=== PATIENT | male | born 1980 | race Caucasian/White ===

== ENCOUNTER → 2017-04-06 | Emergency (ER) | payer BC ==
[~2017-04-06] VITALS: Ht 177.8 cm; Wt 115.5 kg
[~2017-04-06] MED LIST: CIPRO500 MG PO; NAPROXEN500 MG PO; PROZAC40 MG PO; ZOLPIDEM TARTRA10 MG
[2017-04-06 19:29] LABS: ADD MIUA? NO; BILIRUBIN NEGATIVE; BLOOD NEGATIVE; COLOR YELLOW ((YELLOW)); GLUCOSE (STRIP) NEGATIVE; KETONES 20; LEUKOCYTES NEGATIVE; NITRITE NEGATIVE; PROTEIN (STRIP) 30; SPECIFIC GRAVITY 1.019 (1.000-1.030); UCUL ADDED? NO; UROBILINOGEN 0.2 MG/DL (0.2-1.0)
[2017-04-06 19:53] VITALS: BP 167/85
== END | disposition home or self-care (01) ==
LOC: EME 16:01
PROVIDERS: Physician Assistant Medical
DX: N50.811 Right testicular pain (principal)
CPT/HCPCS: 76870; 81003; 99281; 99284; J2270